=== PATIENT | female | born 1985 | race African-American/Black ===

== ENCOUNTER 2021-04-09 14:09 | Emergency (ER) | payer OTHER ==
[~2021-04-09] VITALS: Ht 152.4 cm; Wt 108.4 kg
[2021-04-09 14:17] VITALS: BP 127/80; TEMP 98
== END 2021-04-09 15:53 | disposition home or self-care (01) ==
LOC: ED 14:09
DX: S70.01XA Contusion of right hip, initial encounter (principal); S30.1XXA Contusion of abdominal wall, initial encounter; S10.83XA Contusion of other specified part of neck, initial encounter; W11.XXXA Fall on and from ladder, initial encounter; Y92.89 Other specified places as the place of occurrence of the external cause
CPT/HCPCS: 99283; J2270